=== PATIENT | female | born 1955 | race Caucasian/White ===

== ENCOUNTER 2016-09-30 14:28 | Emergency (ER) | payer OTHER ==
[~2016-09-30] VITALS: Ht 154.9 cm; Wt 65.8 kg
[2016-09-30 15:19] LABS: Urine Bilirubin Negative (Negative); Urine Blood Negative /uL (Negative); Urine Color Yellow (Yellow); Urine Glucose Normal (Normal); Urine Hyaline Cast FEW /lpf (0 - 2); Urine Ketone Negative (Negative); Urine Nitrite Negative (Negative); Urine RBC <1 /hpf (0 - 4); Urine Urobilinogen Normal (Negative); Urine pH 5.5 (5.0-8.0)
[2016-09-30 16:11] LABS: Albumin 4.2 g/dL (3.4-5.0); BUN/Creatinine Ratio 15.8; Calcium 9.3 mg/dL (8.5-10.1); Magnesium 2.3 mg/dL (1.6-2.6); Potassium 3.7 mmol/L (3.5-5.1)
[2016-09-30 16:22] LABS: Bilirubin, Total 0.3 mg/dL (0.2-1.0); Total Protein 8.2 g/dL (6.4-8.2)
[2016-09-30] MEDS ORDERED: SODIUM CHLORIDE 0.9% 1,000 ML IV ONE (16:44)
[2016-09-30] MEDS ORDERED: LORazepam 2MG/ML-1ML VIAL IV ONE (16:45)
[2016-09-30] MEDS ORDERED: MECLIZINE HCL 25 MG TAB PO ONE (16:45)
[2016-09-30 16:49] LABS: Basophils # (auto) 0.1 uL; Basophils % (auto) 1.9 % (0.0-2.0); Eosinophils # (auto) 0 uL; Eosinophils % (auto) 0.2 % (0.0-7.0); Hematocrit 46.4 % (36.0-46.0); Hemoglobin 15.2 g/dL (12.2-16.2); Lymphocytes % (auto) 50.8 % (10.0-50.0); Mean Corpuscular Hemoglobin 33.2 pg (28.0-32.0); Mean Corpuscular Hgb Conc. 32.7 g/dL (32.0-36.0); Mean Corpuscular Volume 101.4 fL (80.0-100.0); Mean Platelet Volume 9.7 fL (7.4-10.4); Monocytes # (auto) 0.5 uL; Monocytes % (auto) 5.8 % (0.0-12.0); Neutrophils # (auto) 3.2 uL; Neutrophils % (auto) 41.3 % (37.0-80.0); Platelet Count (auto) 224 10^3/uL (140-450); Red Cell Distribution Width 11.7 % (11.6-16.0); White Blood Cell 7.8 10^3/uL (4.4-10.8)
[2016-09-30 19:32] VITALS: BP 126/75
== END 2016-09-30 19:51 | disposition home or self-care (01) ==
LOC: ER 14:38
DX: R56.9 Unspecified convulsions (principal); R42 Dizziness and giddiness
CPT/HCPCS: 36415; 70450; 71020; 80053; 80164; 81001; 82962; 83735; 84484; 85025; 93005; 96361; 96374; 99285; J2060; J7030; J8597

== ENCOUNTER 2017-11-27 03:00 | Emergency (ER) | payer OTHER ==
[~2017-11-27] VITALS: Ht 167.6 cm; Wt 68.0 kg
[2017-11-27 03:00] VITALS: BP 156/88
[2017-11-27 03:44] LABS: Basophils # (auto) 0.1 uL; Eosinophils # (auto) 0.1 uL; Hematocrit 43.8 % (36.0-46.0); White Blood Cell 8.6 10^3/uL (4.4-10.8)
[2017-11-27 03:45] LABS: Basophils % (auto) 1.2 % (0.0-2.0); Hemoglobin 15.1 g/dL (12.2-16.2); Lymphocytes # (auto) 3.4 uL; Lymphocytes % (auto) 39.8 % (10.0-50.0); Mean Corpuscular Hemoglobin 34.2 pg (28.0-32.0); Mean Corpuscular Hgb Conc. 34.4 g/dL (32.0-36.0); Mean Corpuscular Volume 99.3 fL (80.0-100.0); Monocytes # (auto) 0.8 uL; Monocytes % (auto) 9.7 % (0.0-12.0); Neutrophils # (auto) 4.2 uL; Neutrophils % (auto) 48.3 % (37.0-80.0); Platelet Count (auto) 212 10^3/uL (140-450); Red Blood Cells 4.41 10^6/uL (4.0-5.20); Red Cell Distribution Width 12.3 % (11.8-14.3)
[2017-11-27 03:54] LABS: Albumin 3.5 g/dL (3.4-5.0); BUN/Creatinine Ratio 13.9; Calcium 9.2 mg/dL (8.5-10.1); Potassium 4.5 mmol/L (3.5-5.1)
[2017-11-27 03:56] LABS: Bilirubin, Total 0.2 mg/dL (0.2-1.0); Total Protein 7.8 g/dL (6.4-8.2)
== END 2017-11-27 07:22 | disposition left against medical advice (07) ==
LOC: EDBD 03:00 → ER 03:05
DX: R53.1 Weakness (principal); Z53.21 Procedure and treatment not carried out due to patient leaving prior to being seen by health care provider
CPT/HCPCS: 36415; 70450; 80053; 82542; 84484; 85025; 93005

== ENCOUNTER 2022-08-30 12:25 | Emergency (ER) | payer OTHER, MEDICAID ==
[~2022-08-30] VITALS: Ht 160 cm; Wt 85.0 kg
[2022-08-30 12:49] VITALS: BP 112/81
[2022-08-30 18:23] LABS: Urine Bacteria NONE SEEN /hpf (None Seen); Urine Blood Negative /uL (Negative); Urine Specific Gravity 1.009 (1.001-1.035); Urine WBC 1 /hpf (0 - 5)
== END 2022-08-30 18:08 | disposition hospice, home (50) ==
LOC: ER 12:25
DX: N39.0 Urinary tract infection, site not specified (principal); Z79.899 Other long term (current) drug therapy
CPT/HCPCS: 81001